=== PATIENT | male | born 1945 | race Caucasian/White ===

== ENCOUNTER 2019-10-26 07:30 | Inpatient (IN) | payer MEDICAID ==
[~2019-10-26] VITALS: Ht 170.2 cm; Wt 99.9 kg
[2019-10-26 10:03] VITALS: BP 134/76
[2019-10-26] MEDS: TAMSULOSIN HCL 0.4 MG CAPSULE PO SCH (12:59)
[2019-10-26] MEDS ORDERED: PNEUMOCOCCAL VACCINE POLYVALENT 0.5 ML VIAL [PPSV23] IM ONE (13:15)
[2019-10-26 13:22] LABS: INR 2.4 (0.9-1.1); PROTHROMBIN TIME 24.3 SEC (9.4-11.6)
[2019-10-26] MEDS ORDERED: ChlorproMAZINE HCL 100 MG TABLET PO PRN (14:30)
[2019-10-26] MEDS ORDERED: ZOLPIDEM TARTRATE 5 MG TABLET PO PRN (14:30)
[2019-10-26] MEDS ORDERED: LORazepam 1 MG TABLET PO PRN (14:30)
[2019-10-26] MEDS: WARFARIN SODIUM 5 MG TABLET PO SCH (16:23)
[2019-10-26] MEDS ORDERED: *CLINICAL-WARFARIN SODIUM DOSING CLINICAL SCH (17:00)
[2019-10-26 17:21] VITALS: BP 112/72
[2019-10-26] MEDS: DEXAMETHASONE 4 MG TABLET PO SCH (20:32)
[2019-10-26] MEDS: DOCUSATE SODIUM 250 MG CAPSULE PO SCH (20:32)
[2019-10-26] MEDS: OLANZapine 5 MG TABLET PO SCH (20:32)
[2019-10-26] MEDS ORDERED: BENZOCAINE/MENTHOL LOZENGE MM PRN (21:45)
[2019-10-26] MEDS ORDERED: PETROLATUM,WHITE 28 GM JELLY TP PRN (21:45)
[2019-10-26] MEDS ORDERED: ACETAMINOPHEN 325 MG TABLET PO PRN (21:45)
[2019-10-26] MEDS ORDERED: LOPERAMIDE HCL 2 MG CAPSULE PO PRN (21:45)
[2019-10-26] MEDS ORDERED: ALBUTEROL SULFATE HFA 90 MCG/PUFF 8 GM INHALER IH PRN (21:45)
[2019-10-26] MEDS ORDERED: ONDANSETRON HCL 4 MG TABLET PO PRN (21:45)
[2019-10-26] MEDS ORDERED: IBUPROFEN 600 MG TABLET PO PRN (21:45)
[2019-10-26] MEDS ORDERED: MAGNESIUM HYDROXIDE SUSPENSION 30 ML UDCUP PO PRN (21:45)
[2019-10-26] MEDS ORDERED: MAG HYDROX/AL HYDROX/SIMETH ES 30 ML SUSPENSION UDCUP PO PRN (21:45)
[2019-10-26] MEDS ORDERED: BACITRACIN 28.4 GM OINTMENT TP PRN (21:45)
[2019-10-26] MEDS ORDERED: CloNIDine HCL 0.1 MG TABLET PO PRN (21:45)
[2019-10-26] MEDS ORDERED: OMEPRAZOLE 20 MG CAPSULE PO PRN (21:45)
[2019-10-27 04:43] VITALS: BP 143/81
[2019-10-27] MEDS: PANTOPRAZOLE SODIUM 40 MG DR TABLET PO SCH (06:39)
[2019-10-27 07:42] LABS: CHOL/HDL RATIO 2.8 (4.2-7.3)
[2019-10-27 08:00] VITALS: BP 123/74
[2019-10-27] MEDS: TAMSULOSIN HCL 0.4 MG CAPSULE PO SCH (09:27)
[2019-10-27] MEDS: DEXAMETHASONE 4 MG TABLET PO SCH ×2 (09:27→20:51)
[2019-10-27] MEDS: DIVALPROEX SODIUM 500 MG ER TABLET PO SCH (09:29)
[2019-10-27] MEDS: DOCUSATE SODIUM 250 MG CAPSULE PO SCH ×2 (09:30→16:09)
[2019-10-27] MEDS: WARFARIN SODIUM 5 MG TABLET PO SCH (16:10)
[2019-10-27 16:14] VITALS: BP 108/74
[2019-10-27] MEDS: OLANZapine 5 MG TABLET PO SCH (20:51)
[2019-10-28] MEDS: PANTOPRAZOLE SODIUM 40 MG DR TABLET PO SCH (06:39)
[2019-10-28 07:09] LABS: INR 3.5 (0.9-1.1); PROTHROMBIN TIME 34.8 SEC (9.4-11.6)
[2019-10-28] MEDS: DEXAMETHASONE 4 MG TABLET PO SCH ×2 (08:23→20:32)
[2019-10-28] MEDS: DIVALPROEX SODIUM 500 MG ER TABLET PO SCH (08:23)
[2019-10-28] MEDS: TAMSULOSIN HCL 0.4 MG CAPSULE PO SCH (08:25)
[2019-10-28] MEDS: DOCUSATE SODIUM 250 MG CAPSULE PO SCH ×2 (08:25→16:31)
[2019-10-28 09:58] VITALS: BP 130/74
[2019-10-28] MEDS ORDERED: WARFARIN SODIUM-INR 2.0-3.0-RX DOSING PER PROTOCOL PO PRN (12:30)
[2019-10-28 16:03] VITALS: BP 104/68
[2019-10-28] MEDS: OLANZapine 5 MG TABLET PO SCH (20:32)
[2019-10-28] MEDS ORDERED: FLUO-191 PO (20:56)
[2019-10-28] MEDS ORDERED: GuaiFENesin/D-METHORPHAN [SUGAR-FREE] 200-20MG/10 ML SYRUP UDCUP PO PRN (21:30)
[2019-10-28] MEDS ORDERED: HydrOXYzine PAMOATE 50 MG CAPSULE PO PRN (21:30)
[2019-10-29 03:34] VITALS: BP 105/61
[2019-10-29 06:03] VITALS: BP 117/62
[2019-10-29] MEDS: PANTOPRAZOLE SODIUM 40 MG DR TABLET PO SCH (06:15)
[2019-10-29 08:30] VITALS: BP 119/65
[2019-10-29 08:57] LABS: INR 3.2 (0.9-1.1); PROTHROMBIN TIME 31.4 SEC (9.4-11.6)
[2019-10-29] MEDS ORDERED: FOLIC ACID 1 MG TABLET PO SCH (09:00)
[2019-10-29] MEDS ORDERED: MULTIVITAMINS WITH MINERALS, THERAPEUTIC TABLET PO SCH (09:00)
[2019-10-29] MEDS ORDERED: DULoxetine HCL 20 MG CAPSULE PO SCH (09:00)
[2019-10-29] MEDS ORDERED: THIAMINE 100 MG TABLET PO SCH (09:00)
[2019-10-29] MEDS: DEXAMETHASONE 4 MG TABLET PO SCH (10:13)
[2019-10-29] MEDS: TAMSULOSIN HCL 0.4 MG CAPSULE PO SCH (10:15)
[2019-10-29] MEDS: DOCUSATE SODIUM 250 MG CAPSULE PO SCH (10:15)
[2019-10-29] MEDS ORDERED: DOCU-342 PO (12:59)
[2019-10-29] MEDS ORDERED: DEXA4 PO (12:59)
[2019-10-29] MEDS ORDERED: TAMS-13 PO (13:00)
[2019-10-29] MEDS ORDERED: PANT-31 PO (13:00)
[2019-10-29] MEDS ORDERED: WARFARIN SODIUM 2.5 MG TABLET PO ONE (17:00)
== END 2019-10-29 13:50 | disposition home or self-care (01) | DRG 885 ==
LOC: 3EI 07:57
PROVIDERS: ADMIT Psychiatry & Neurology Psychiatry; ATTEND Psychiatry & Neurology Psychiatry
DX: F33.2 Major depressive disorder, recurrent severe without psychotic features (principal); N18.3 Chronic kidney disease, stage 3 (moderate); R45.851 Suicidal ideations; I12.9 Hypertensive chronic kidney disease with stage 1 through stage 4 chronic kidney disease, or unspecified chronic kidney disease; K21.9 Gastro-esophageal reflux disease without esophagitis; M19.90 Unspecified osteoarthritis, unspecified site; M54.10 Radiculopathy, site unspecified; M54.2 Cervicalgia; M62.81 Muscle weakness (generalized); F29 Unspecified psychosis not due to a substance or known physiological condition; F25.1 Schizoaffective disorder, depressive type; N40.0 Benign prostatic hyperplasia without lower urinary tract symptoms; Z86.711 Personal history of pulmonary embolism; Z59.0 Homelessness
CPT/HCPCS: 87081; 97116; 97162; 97530; J8540